=== PATIENT | female | born 1995 | race African-American/Black ===

== ENCOUNTER 2019-01-19 12:13 | Inpatient (IN) ==
[2019-01-19] MEDS ORDERED: ONDANSETRON 4 MG/2 ML VIAL IV PRN (12:42)
[2019-01-19 12:53] LABS: Basophils % 0.2 % (0.0-0.8); Eosinophils # 0.1 10*3/uL (0.0-0.87); Eosinophils % 0.6 % (0.00-10.9); Hematocrit 31.3 VOL% (35.7-47.0); Hemoglobin 9.9 GM/DL (12.0-16.0); Immature Granulocytes % 1.2 %; Immature Granulocytes Absolute 0.16 #; Lymphocytes # 2.5 10*3/uL (1.4-4.0); Lymphocytes % 19.3 % (21.3-54.2); Mean Corpuscular HGB Conc 31.6 GM/DL (32-36); Mean Corpuscular Hemoglobin 27 PG (27-34); Mean Corpuscular Volume 85.8 FL (87-102); Mean Platelet Volume 10.6 FL (9.6-12.0); Monocytes # 1.9 10*3/uL (0.11-0.8); Monocytes % 14.3 % (1.7-12.7); Neutrophils # 8.5 10*3/uL (1.4-7.4); Neutrophils % 64.4 % (38.7-73.9); Platelet Count 196 T/CUMM (130-400); Red Blood Count 3.65 MC/CUMM (3.8-5.5); Red Cell Distribution Width 13.5 % (9.3-17.3); White Blood Count 13.2 T/CUMM (4-12)
[2019-01-19] MEDS ORDERED: diphenhydrAMINE 50 MG/1 ML VIAL IV PRN ×2 (13:00)
[2019-01-19] MEDS ORDERED: PROMETHAZINE 25 MG/1 ML VIAL IM ONE (13:00)
[2019-01-19] MEDS ORDERED: OXYTOCIN/LR 20 UNIT/1,000 ML BAG IV SCH (13:00)
[2019-01-19] MEDS ORDERED: FAMOTIDINE 20 MG/2 ML VIAL IV ONE (13:00)
[2019-01-19] MEDS ORDERED: LACTATED RINGERS 1,000 ML IV SCH (13:00)
[2019-01-19] MEDS ORDERED: ePHEDrine 50 MG/ML AMP IV PRN (13:00)
[2019-01-19] MEDS ORDERED: hydrOXYzine HCL 25 MG/1 ML VIAL IM PRN (13:00)
[2019-01-19] MEDS ORDERED: CITRIC ACID/SODIUM CITRATE 30 ML UDCUP PO ONE (13:00)
[2019-01-19] MEDS ORDERED: NALOXONE 0.4 MG/ML VIAL IV PRN (13:00)
[2019-01-19] MEDS ORDERED: fentaNYL 2 MCG/ROPIV 0.2% EPID 100 ML EPIDURAL SCH (13:00)
[2019-01-19] MEDS ORDERED: LACTATED RINGERS 1,000 ML IV ONE (13:00)
[2019-01-19] MEDS ORDERED: LIDOCAINE 1% 50 ML VIAL ONE (13:12)
[2019-01-19] MEDS ORDERED: BUTORPHANOL 2 MG/ML VIAL ONE (13:12)
[2019-01-19 13:18] LABS: Albumin 2.7 G/DL (3.4-5.0); Bilirubin,Total 0.6 MG/DL (0.2-1.0); Calcium 8.4 MG/DL (8.5-10.1); Osmolality,Calculated 272.5 MOS/KG (273-304); Total Protein 6.5 G/DL (6.4-8.3)
[2019-01-19 14:10] LABS: Cord Venous Blood HCO3 22.2 MMOL/L; Cord Venous Blood PCO2 38.2 MMHG; Cord Venous Blood PO2 38.6 MMHG
[2019-01-19] MEDS ORDERED: HYDROCORTISONE 2.5% RECTAL CREAM 30 GM TUBE TOP PRN (17:05)
[2019-01-19] MEDS ORDERED: DIPH/TET/ACEL PERT BOOSTER VACCINE 0.5 ML VIAL IM ONE (17:05)
[2019-01-19] MEDS ORDERED: LANOLIN 50% CREAM 0.3 OZ TUBE TOP PRN (17:05)
[2019-01-19] MEDS ORDERED: ACETAMINOPHEN 325 MG TABLET PO PRN (17:05)
[2019-01-19] MEDS ORDERED: oxyCODONE/ACETAMINOPHEN 5-325 MG TABLET PO PRN ×2 (17:05)
[2019-01-19] MEDS ORDERED: BENZOCAINE 20%/MENTHOL 0.5% SPRAY 56 GM CAN TOP PRN (17:05)
[2019-01-19] MEDS ORDERED: IBUPROFEN 800 MG TABLET PO PRN (17:05)
[2019-01-19] MEDS ORDERED: MEASLES/MUMPS/RUBELLA VACCINE 0.5 ML VIAL SUBCUT ONE (17:05)
[2019-01-19] MEDS ORDERED: WITCH HAZEL PADS 100/JAR TOP PRN (17:05)
[2019-01-19] MEDS ORDERED: BISACODYL 10 MG SUPP RECTAL PRN (17:05)
[2019-01-19] MEDS ORDERED: RHO(D) IMMUNE GLOBULIN 300 MCG SYRINGE IM ONE (17:05)
[2019-01-19] MEDS ORDERED: ACETAMINOPHEN/CODEINE 300-30 MG TABLET PO PRN (17:05)
[2019-01-19] MEDS: DOCUSATE SODIUM 100 MG CAPSULE PO SCH (22:11)
[2019-01-20 06:39] LABS: Basophils % 0.2 % (0.0-0.8); Eosinophils # 0.2 10*3/uL (0.0-0.87); Eosinophils % 1.3 % (0.00-10.9); Hematocrit 25.8 VOL% (35.7-47.0); Hemoglobin 8.4 GM/DL (12.0-16.0); Immature Granulocytes % 1.1 %; Immature Granulocytes Absolute 0.15 #; Lymphocytes # 3.2 10*3/uL (1.4-4.0); Lymphocytes % 22.5 % (21.3-54.2); Mean Corpuscular HGB Conc 32.6 GM/DL (32-36); Mean Corpuscular Hemoglobin 27 PG (27-34); Mean Platelet Volume 11.3 FL (9.6-12.0); Monocytes # 2.2 10*3/uL (0.11-0.8); Monocytes % 15.3 % (1.7-12.7); Neutrophils # 8.4 10*3/uL (1.4-7.4); Neutrophils % 59.6 % (38.7-73.9); Platelet Count 166 T/CUMM (130-400); Red Blood Count 3.07 MC/CUMM (3.8-5.5); Red Cell Distribution Width 13.3 % (9.3-17.3); White Blood Count 14.1 T/CUMM (4-12)
[2019-01-20] MEDS: DOCUSATE SODIUM 100 MG CAPSULE PO SCH ×2 (09:07→20:17)
[2019-01-20] MEDS: FERROUS SULFATE 325 MG TABLET PO SCH ×2 (09:07→20:17)
[2019-01-21 07:51] VITALS: BP 104/66
[2019-01-21] MEDS: DOCUSATE SODIUM 100 MG CAPSULE PO SCH (08:42)
[2019-01-21] MEDS: FERROUS SULFATE 325 MG TABLET PO SCH (08:42)
== END 2019-01-21 13:20 | disposition home or self-care (01) | DRG 560 ==
LOC: N.LDOUT 12:13 → N.LD 12:14 → N.OB 16:56
PROVIDERS: ADMIT Obstetrics & Gynecology; ATTEND Obstetrics & Gynecology